=== PATIENT | male | born 1975 | race Caucasian/White ===

== ENCOUNTER 2020-11-18 15:03 | Outpatient (REF) | payer OTHER, SELFPAY ==
[2020-11-18 16:19] LABS: COVID-19 Test Negative (Negative)
== END 2020-11-18 15:04 | disposition home or self-care (01) ==
LOC: HO.LAB 15:03
PROVIDERS: PCP Nurse Practitioner Family; Visit Provider Nurse Practitioner Family
DX: Z20.822 Contact with and (suspected) exposure to COVID-19 (principal)
CPT/HCPCS: 36415; 87635

== ENCOUNTER 2022-01-22 07:18 | Outpatient (REF) | payer OTHER, SELFPAY ==
[2022-01-22 07:35] LABS: MANUAL DIFF FLAG NO
[2022-01-22 08:38] LABS: Basophils Absolute Auto 0.1 X10*3/uL (0.0-0.2); Eosinophils Absolute Auto 0.2 X10*3/uL (0.0-0.4); Eosinophils Percent Auto 2.6 % (0-4); Hematocrit 47.4 % (42.0-52.0); Hemoglobin 15.9 g/dl (14.0-18.0); Imm Gran Abs Auto 0.03 X10*3/uL (0.00-0.03); Imm Gran Pct Auto 0.5 % (0.0-0.4); Lymphocytes Absolute Auto 1.9 X10*3/uL (1.2-4.9); Lymphocytes Percent Auto 32.4 % (20-40); Mean Corpuscular HGB Conc 33.5 g/dl (31.0-36.0); Mean Corpuscular Hemoglobin 29.8 pg (27.0-33.0); Mean Corpuscular Volume 88.8 fL (80.0-98.0); Mean Platelet Volume 9.5 fL (9.4-12.4); Monocytes Absolute Auto 0.7 X10*3/uL (0.1-1.2); Monocytes Percent Auto 12.2 % (2-11); Neutrophils Percent Auto 51.3 % (45-73); Platelet Count 274 X10*3/uL (160-400); Red Blood Count 5.34 X10*6/uL (4.60-5.80); Red Cell Distribution Width 12.3 % (11.0-16.0); White Blood Count 5.8 X10*3/uL (4.8-10.8)
[2022-01-22 08:58] LABS: Alanine Aminotransferase 56 U/L (0-40); Albumin Level 4.6 g/dL (3.5-5.0); Alkaline Phosphatase 79 U/L (39-117); Anion Gap 14 (12-20); Aspartate Amino Transferase 29 U/L (5-37); Bilirubin Total 0.7 mg/dL (0.0-1.0); Blood Urea Nitrogen 17 mg/dL (9-16); Calcium 9.8 mg/dL (8.4-10.2); Carbon Dioxide 27 mmol/L (22-29); Chloride 103 mmol/L (96-108); Cholesterol 281 mg/dL; Estimated Glomerular Filt Rate > 60; Glucose Random 104 mg/dL (60-115); HDL Cholesterol 54 mg/dL; LDL Cholesterol Calculated 200 mg/dl; Potassium 5.1 mmol/L (3.3-5.1); Sodium 139 mmol/L (135-145); Total Protein 7.3 g/dL (6.5-8.0); Triglycerides 139 mg/dL
== END 2022-01-22 07:19 | disposition home or self-care (01) ==
LOC: HO.LAB 07:18
PROVIDERS: PCP Nurse Practitioner Family; Visit Provider Nurse Practitioner Family
DX: E78.2 Mixed hyperlipidemia (principal)
CPT/HCPCS: 36415; 80053; 80061; 85025

== ENCOUNTER → 2023-05-24 11:59 | Outpatient (BNVA) | payer OTHER, SELFPAY | PROVIDERS: PCP Nurse Practitioner Family; Visit Provider Physician Assistant | DX: S46.912A Strain of unspecified muscle, fascia and tendon at shoulder and upper arm level, left arm, initial encounter (principal); X50.0XXA Overexertion from strenuous movement or load, initial encounter | CPT/HCPCS: 99204 ==

== ENCOUNTER → 2023-05-28 08:57 | Outpatient (BNVA) | payer OTHER, SELFPAY | PROVIDERS: PCP Nurse Practitioner Family; Visit Provider Physician Assistant Medical | DX: M24.812 Other specific joint derangements of left shoulder, not elsewhere classified (principal) | CPT/HCPCS: 99213 ==

== ENCOUNTER → 2023-05-30 08:16 | Outpatient (BNVA) | payer OTHER, SELFPAY | PROVIDERS: PCP Registered Nurse; Visit Provider Physician Assistant Medical | DX: M24.812 Other specific joint derangements of left shoulder, not elsewhere classified (principal) | CPT/HCPCS: 99213 ==

== ENCOUNTER → 2023-06-07 12:56 | Outpatient (BNVA) | payer OTHER, SELFPAY | PROVIDERS: PCP Registered Nurse; Visit Provider Physician Assistant Medical | DX: M24.812 Other specific joint derangements of left shoulder, not elsewhere classified (principal) | CPT/HCPCS: 99213 ==

== ENCOUNTER 2023-06-11 15:00 | Outpatient (RCR) | payer OTHER, SELFPAY ==
--- NOTE | 2023-06-05 13:24 | MHC.PT.EP ---
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 Painful arc + with minor loss of ROM. Skilled PT indicated to reduce pain/inflammation, promote periscap stabilization with proper glenohumeral rhythm and postural improvements, and help return to PLOF. Pt in agreement with POC and is motivated to participate. Frequency and Duration: The patient will be seen 1-2x/week, x 4 weeks Short Term Goals: 1. In 2 weeks, patient will be I with phase 1 periscap HEP. 2. In 2 weeks, patient will achieve full AROM L shoulder all planes. Care Home Goals: 1. In 4 weeks patient will be able to reach overhead and put on sweatshirt without pain. 2. In 4 weeks, patient will improve SPADI score 20 points indicating improved functional use of L UE. 3. 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 Treatment Plan: Modalities to reduce pain, spasms and effusion. Manual therapy to restore motion and function. Therapeutic exercise to improve strength and flexibility. Neuromuscular re-education for posture and balance. Therapeutic activities to return to functional activities of daily living. Electronically signed by: Kylah Koch PT, DPT Please sign and return to therapist. Thank you for your referral.
--- NOTE | 2023-12-03 09:25 | MHC.PT.DC ---
[facility] [place] Office [place] Office [place] Office [address] [phone] F: [phone] F: [phone] F: [phone] F: [phone] Physical Therapy Discharge Report Diagnosis: L shoulder Date of Surgery: N/A Date of Evaluation: 06/05/23 Date of Discharge: 12/03/23 Treatments to Date: 2 Cancellations to Date: No Shows to Date: Discharge Status: Improved Function Recommend MD Follow-up Visit Non-compliance Discharge Summary: Pt is a 48yo male who presents to PT for L shoulder pain, associated with work injury. Pt participated in 2 treatment sessions, was educated in proper body mechanics and exercises to complete at home for rehabilitation of shoulder. Pt did not return after 2nd session. Pt will be D/C'd at this time with recommendation to f/u with MD. Electronically signed by: Kylah Koch PT, DPT Please sign and return to therapist. Thank you for your referral.
== END 2023-12-03 09:25 | disposition home or self-care (01) ==
LOC: HO.PT 15:00
PROVIDERS: PCP Registered Nurse; Visit Provider Physician Assistant Medical
DX: M24.9 Joint derangement, unspecified (principal)
CPT/HCPCS: 97014; 97110; 97161

== ENCOUNTER → 2023-06-14 13:04 | Outpatient (BNVA) | payer OTHER, SELFPAY | PROVIDERS: PCP Registered Nurse; Visit Provider Physician Assistant Medical | DX: M24.812 Other specific joint derangements of left shoulder, not elsewhere classified (principal) | CPT/HCPCS: 99213 ==